=== PATIENT | male | born 2000 | race Caucasian/White ===

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

== ENCOUNTER 2020-02-01 10:59 | Emergency (ER) | payer BC, OTHER ==
[2020-02-01 11:16] VITALS: BP 117/79; PULSE 62; RESP 16; TEMP 98.5
[2020-02-01] MEDS ORDERED: DIPH,PERTUS(ACELL)TETVAC-LF 0.5 ML VIAL IM ONE (11:43)
[2020-02-01] MEDS ORDERED: LIDOCAINE 1% INJ 10MG/ML (20 ML MDV) SQ ONE (11:43)
--- NOTE | 2020-02-01 11:53 | ED ---
General Adult HPI - General Chief complaint: Extremity Injury, Lower Stated complaint: Hand injury, [facility] Time Seen by Provider: 02/01/20 11:23 Source: patient, RN notes reviewed Mode of arrival: ambulatory Limitations: no limitations - History of Present Illness Initial comments: 19-year-old male presents to the emergency department for a chief complaint of laceration. Patient states he was at work using a milk powder grinder when it hit his right fourth MCP joint. Patient is a small laceration noted to the dorsal right hand. Patient has full range of motion of the right fourth digit. Denies loss of sensation. Patient is not up-to-date on tetanus.Patient has no other complaints at this time including shortness of breath, chest pain, abdominal pain, nausea or vomiting, headache, or visual changes. - Related Data Home Medications Medication Instructions Recorded Confirmed Azithromycin [Zithromax Tri-Anton (3 See Taper PO DAILY 11/21/18 11/21/18 tabs)] Previous Rx's Medication Instructions Recorded Cefuroxime Axetil [Ceftin] 500 mg PO BID 5 Days #10 tab 11/22/18 Cephalexin [Keflex] 500 mg PO Q6HR 5 Days #20 cap 02/01/20 Allergies Allergy/AdvReac Type Severity Reaction Status Date / Time No Known Allergies Allergy Verified 02/01/20 11:16 Review of Systems ROS Statement: Those systems with pertinent positive or pertinent negative responses have been documented in the HPI. ROS Other: All systems not noted in ROS Statement are negative. Past Medical History Past Medical History: Asthma Additional Past Medical History / Comment(s): Pt states he uses albuterol inhaler very rarely for asthma History of Any Multi-Drug Resistant Organisms: None Reported Past Surgical History: No Surgical Hx Reported Past Anesthesia/Blood Transfusion Reactions: No Reported Reaction Past Psychological History: No Psychological Hx Reported Smoking Status: Never smoker Past Alcohol Use History: None Reported Past Drug Use History: None Reported General Exam Limitations: no limitations General appearance: alert, in no apparent distress Head exam: Present: atraumatic, normocephalic, normal inspection Eye exam: Present: normal appearance, PERRL, EOMI. Absent: scleral icterus, conjunctival injection, periorbital swelling ENT exam: Present: normal exam, mucous membranes moist Neck exam: Present: normal inspection, full ROM. Absent: tenderness, meningismus, lymphadenopathy Respiratory exam: Present: normal lung sounds bilaterally. Absent: respiratory distress, wheezes, rales, rhonchi, stridor Cardiovascular Exam: Present: regular rate, normal rhythm, normal heart sounds. Absent: systolic murmur, diastolic murmur, rubs, gallop, clicks Extremities exam: Present: full ROM (Full range of motion of all digits in the right hand including the right fourth digit. Full flexion and extension at the MCP, PIP, and DIP joints of the right fourth digit.), normal capillary refill (Capillary refill less than 2 seconds in all digits of the right hand including the right fourth digit. Radial pulses 2+ in the right hand.), other (1 cm laceration to the dorsum of the right fourth digit MCP joint.). Absent: tenderness, pedal edema, joint swelling, calf tenderness Neurological exam: Present: alert Course Vital Signs 02/01/20 11:14 Temperature 98.5 F Pulse Rate 62 Respiratory 16 Rate Blood Pressure 117/79 O2 Sat by Pulse 98 Oximetry Procedures - Laceration Laceration #1 Consent Obtained: verbal consent Indication: laceration Site: hand Size (cm): 1 Description: linear Depth: simple, single layer Anesthetic Used: lidocaine 1% Anesthesia Technique: local infiltration Amount (mls): 2 Pre-repair: wound explored, irrigated extensively (with saline pressure irrigation), foreign body removed Type of Sutures: nylon Size of Sutures: 4-0 Number of Sutures: 3 Technique: simple, interrupted Patient Tolerated Procedure: well, no complications Medical Decision Making - Medical Decision Making Vitals are stable. X-ray images reviewed by myself and Dr. Long, unremarkable study. Physical exam does reveal a 1.5 cm laceration to the dorsum of the right MCP joint. This was irrigated thoroughly. Small dirt particles were removed. 3 simple sutures were applied. Given dirty nature of wound patient was started on prophylactic antibiotics. Patient will follow up with primary care. He will return here for any worsening symptoms. I discussed return parameters for infection as well as to return in around 10 days to have sutures removed. Disposition Clinical Impression: Laceration Disposition: HOME SELF-CARE Condition: Good Instructions (If sedation given, give patient instructions): Laceration (ED), Care For Your Stitches (ED) Additional Instructions: Please take antibiotic as directed. Monitor for signs of infection and return if these occur. Return if you have any other worsening symptoms. Otherwise return to the emergency room in about 10 days for suture removal. Prescriptions: Cephalexin [Keflex] 500 mg PO Q6HR 5 Days #20 cap Is patient prescribed a controlled substance at d/c from ED?: No Referrals: Manuel Molina DO [Primary Care Provider] - 1-2 days Time of Disposition: 12:50
--- NOTE | 2020-02-01 12:57 | XR ---
EXAMINATION TYPE: XR hand complete RT DATE OF EXAM: 02/01/2020 COMPARISON: None HISTORY: Laceration fourth metacarpal phalangeal joint TECHNIQUE: Three-view right hand FINDINGS: No acute fractures or dislocations are evident. Joint spaces are preserved. No radiopaque f oreign bodies are evident. Soft tissues appear normal. IMPRESSION: 1. No acute osseous abnormality
== END 2020-02-01 13:01 | disposition home or self-care (01) ==
LOC: EC 10:59
DX: S61.411A Laceration without foreign body of right hand, initial encounter (principal); W31.89XA Contact with other specified machinery, initial encounter; Y92.69 Other specified industrial and construction area as the place of occurrence of the external cause; Y99.0 Civilian activity done for income or pay
CPT/HCPCS: 73130; 90715; 99283; 12001; 90471; J2001